=== PATIENT | female | born 1990 | race Two or more races ===

== ENCOUNTER 2019-08-16 23:29 | Emergency (ER) | payer SELFPAY ==
--- NOTE | 2019-08-16 23:34 | PDOC ---
History of Present Illness - General Chief Complaint: Pain, Acute Stated Complaint: FLANK PAIN Time Seen by Provider: 08/16/19 23:30 - History of Present Illness Initial Comments: 08/16/19 23:53 This 29-year-old woman (4 ETOP) with a history of hypertension and probable past hx kidney stones presents with 24-hour history of progressive right CVA/ flank pain. Over the last 12 hours, the pain has become more severe and nausea/ vomiting developed over the last few hours (patient vomited moderate amount of bilious material on presentation). Patient has been taking acetaminophen during the day today; she denies fever/chills, dysuria/urinary frequency/gross hematuria. She states that she had similar pattern but milder pain that self resolved approximately 1 month ago. Several years ago, patient states that she had "stone in (her) urethra" that was mildly painful. According the patient, this was treated with "an injection",medication to help the stone to pass and antibiotics without recurrence. Patient was diagnosed with hypertension approximately a month ago, being treated with lisinopril which she takes daily. No other significant PMH LMP approximately 1 week ago (just finishing); menstrual periods have been regular. No known allergies Medications as noted below No known allergies Past History - Past Medical History Allergies/Adverse Reactions: Allergies Allergy/AdvReac Type Severity Reaction Status Date / Time No Known Allergies Allergy Unverified 08/16/19 23:31 Home Medications: Ambulatory Orders Lisinopril 08/16/19 Review of Systems - Review of Systems Able to Perform ROS?: Yes Comments:: 12 point review of systems is negative except for what is noted in the history of present illness *Physical Exam - Physical Exam Comments: GENERAL: Adult female, alert and oriented x3, in moderate distress secondary to right CVA/flank pain and nausea HEAD: Normal with no signs of trauma. EYES: PERRLA, EOMI, sclera anicteric, conjunctiva clear. ENT: Ears normal, nares patent, oropharynx clear without exudates. Dry mucous membranes. NECK: Normal range of motion, supple without lymphadenopathy, JVD, or masses. LUNGS: Breath sounds equal, clear to auscultation bilaterally. No wheezes, and no crackles. HEART:Regular rate and rhythm, normal S1 and S2 without murmur, rub or gallop. ABDOMEN:.normal bowel sounds No guarding,tenderness or rebound.No masses No distention. R CVA /flank tenderness EXTREMITIES: Normal range of motion, no edema. No clubbing or cyanosis. No erythema, or tenderness. NEUROLOGICAL: Cranial nerves II through XII grossly intact. Normal speech. No focal neurological deficits. SKIN: Warm, Dry, normal turgor, no rashes or lesions noted. ED Treatment Course - LABORATORY CBC & Chemistry Diagram: 08/17/19 00:05 08/17/19 00:05 ED Progress Note - Progress Note Progress Note: This 29-year-old woman presents with a history of right CVA/right flank pain radiating to the right lower quadrant for 1 day, progressive in severity and associated with nausea and vomiting the last few hours prior to presentation. Similar pain occurred 1 month ago but was milder and resolved spontaneously. Exam is noted. Urinalysis shows microscopic hematuria assumed to be malignant although it may not be). She is best served being in an institution that has 5-10 RBCs per high -power field 0-5 WBCs per high-power field no other abnormalities seen) PGU negative IV hydration started with normal saline, 1 L and patient given 30 mg Toradol IV and 4 mg Zofran IV. Patient had persistent pain after Toradol IV and was given 0.5 mg Dilaudid IV. Renal stone protocol abdominal/pelvic CT performed. Because of persistent pain, additional 0.5 mg Dilaudid IV administered. Preliminary interpretation of CT abdomen/pelvis without contrast by Imaging service promoter salesperson: No evidence of Obstructive uropathy or renal stones. No other abnormalities seen except for large cystic mass arising from the pelvis measuring 23 cm x 25 cm x 17 cm. The bladder was unremarkable. Patient has persistent pain, especially when lying supine. The additional 2 mg Dilaudid IV given. Results discussed with the patient. She has not had any gynecological exam in a few years; she has noted some lower abdominal swelling and occasionally has mild suprapubic pain but no other symptoms. She has a history of small ovarian cyst seen when she was a teenager; no sequelae noted subsequently. Case discussed with Dr. Pedersen, [employer]CHITECT attending as well as [place] for reproductive medicine fellow on-call, Dr. Smith. Because of the patient's persistent pain and large pelvic mass, patient should be evaluated at institution that has gynecological oncology service as well as operating room availability (no available OR here until 08/19). Medical Decision Making - Medical Decision Making 08/17/19 03:31 Need for transfer to facility with specialty care discussed with the patient who agrees to the plan. [facility] transfer center contacted. Case discussed with Dr. Finley of the gynecology service. He accepted the patient to be seen in the emergency department. Noncontrast abdominal/pelvic CT study sent thru [facility] to [facility] Patient informed of acceptance at [facility] emergency department by Dr. Finley of the gynecology service. Right flank pain has recurred. Patient will be given Dilaudid 2 mg IV Discharge - Discharge Information Problems reviewed: Yes Clinical Impression/Diagnosis: Pelvic mass in female, Intractable pain Condition: Stable Disposition: TRANSFER ACUTE CARE/OTHER HOSP - Follow up/Referral Referrals: Steve Brooke [Primary Care Provider] - - Patient Discharge Instructions - Post Discharge Activity - Transfer to Acute Care Facility Receiving Facility Name: [facility] Accepting Physician:: Dr Finley
[2019-08-16 23:41] VITALS: BMI 36.6
[2019-08-16 23:44] LABS: EPITHELIAL CELLS FEW /hpf
[2019-08-16 23:46] LABS: HCG,QUALITATIVE URINE Negative
[2019-08-16] MEDS ORDERED: ONDANSETRON 4 MG/2 ML VIAL IVPUSH ONE (23:48)
[2019-08-16] MEDS ORDERED: KETOROLAC TROMETHAMINE 30 MG/1 ML VIAL IVPUSH ONE (23:48)
[2019-08-16] MEDS ORDERED: SODIUM CHLORIDE 1,000 ML IV STA (23:48)
[2019-08-16] MEDS ORDERED: ONDANSETRON 4 MG/2 ML VIAL ONE (23:51)
[2019-08-16] MEDS ORDERED: KETOROLAC TROMETHAMINE 30 MG/1 ML VIAL ONE (23:51)
[2019-08-17] MEDS ORDERED: HYDROmorphone HCL CARPU-JECT 1 MG/1 ML DISP.SYRIN IVPUSH ONE ×2 (00:26→00:50)
[2019-08-17] MEDS ORDERED: HYDROmorphone HCL CARPU-JECT 1 MG/1 ML DISP.SYRIN ONE (00:28)
[2019-08-17] MEDS ORDERED: HYDROmorphone HCL CARPU-JECT 2 MG/1 ML DISP.SYRIN IVPUSH ONE ×2 (01:29→03:44)
[2019-08-17] MEDS ORDERED: HYDROmorphone HCl 2 MG/ML VIAL ONE ×2 (01:31→03:47)
[2019-08-17 02:01] LABS: ALBUMIN 3.8 g/dl (3.4-5.0); BILIRUBIN,TOTAL 0.5 mg/dL (0.2-1); BLOOD UREA NITROGEN 10.5 mg/dL (7-18); CALCIUM 8.9 mg/dL (8.5-10.1); CREATININE 0.7 mg/dL (0.55-1.3); TOT PROT 7.4 g/dl (6.4-8.2)
[2019-08-17 02:34] LABS: HEMATOCRIT 40.3 % (32.4-45.2); HEMOGLOBIN 13.5 GM/dL (10.7-15.3); MEAN CELL VOLUME 91.4 fl (80-96); RBC 4.41 M/mm3 (3.60-5.2); WHITE BLOOD COUNT 13.4 K/mm3 (4.0-10.0)
[2019-08-17 02:35] LABS: BASO % 0.2 % (0-2.0); EOS % 1.2 % (0-4.5); LYMPH % 38.2 % (8-40); MCH 30.5 pg (25.7-33.7); MCHC 33.4 g/dl (32.0-36.0); MEAN PLT VOLUME 9.3 fl (7.5-11.1); MONO % 7.8 % (3.8-10.2); NEUT % 52.6 % (42.8-82.8); PLATELET COUNT 348 K/MM3 (134-434); RDW 12.8 % (11.6-15.6)
[2019-08-17 03:34] VITALS: BP 125/91; PULSE 61; TEMP 97.8
== END 2019-08-17 04:42 | disposition short-term general hospital (02) ==
LOC: FER 23:29
CPT/HCPCS: 36415; 74176-TC; 80053; 81003; 81015; 84703; 85025; 87086; 99283-25; J7030

== ENCOUNTER 2024-07-10 04:04 | Day surgery (SDC) | payer BC ==
[2024-06-17 17:29] VITALS: BMI 40.9
[2024-07-10] MEDS ORDERED: LIDOCAINE HCL/PF 2% SDV 5ML VIAL ONE (07:25)
[2024-07-10] MEDS ORDERED: PROPOFOL 20 ML ONE (07:25)
[2024-07-10] MEDS ORDERED: MIDAZOLAM HCL 2 MG/2 ML SINGLE DOSE VIAL ONE (07:25)
[2024-07-10] MEDS ORDERED: KETOROLAC TROMETHAMINE 30 MG/1 ML VIAL ONE (08:23)
[2024-07-10] MEDS ORDERED: DEXAMETHASONE SOD PHOSPHATE 4 MG/1 ML VIAL ONE (08:23)
[2024-07-10] MEDS ORDERED: ONDANSETRON 4 MG/2 ML VIAL ONE (08:23)
[2024-07-10] MEDS ORDERED: PROMETHAZINE HCL 25 MG/1 ML VIAL IVPB PRN (08:44)
[2024-07-10] MEDS ORDERED: ONDANSETRON 4 MG/2 ML VIAL IVPUSH PRN (08:44)
[2024-07-10] MEDS ORDERED: oxyCODONE HCL 5 MG TABLET PO PRN ×2 (08:44)
[2024-07-10] MEDS ORDERED: LACTATED RINGERS SOLUTION 1,000 ML IV SCH (08:45)
[2024-07-10] MEDS: IODINE/POTASSIUM IODIDE 5%/10% 14 ML BOTTLE NR ONE (08:45)
[2024-07-10] MEDS: FERRIC SUBSULFATE 500 ML BOTTLE TP ONE (08:46)
[2024-07-10] MEDS ORDERED: IBUPROFEN 400 MG TABLET (FP) PO PRN (08:56)
[2024-07-10] MEDS: ACETAMINOPHEN 1000 MG/100 ML BAG IVPB ONE (09:33)
[2024-07-10 11:07] VITALS: RESP 20
[2024-07-10] MEDS ORDERED: oxyCODONE HCL 5 MG TABLET ONE (11:40)
[2024-07-10] MEDS: oxyCODONE HCL 5 MG TABLET PO ONE (11:46)
[2024-07-10 12:14] VITALS: BP 114/69; PULSE 80; TEMP 97.5
[2024-07-10] MEDS ORDERED: ACETAMINOPHEN 325 MG TABLET (FP) PO PRN (15:00)
== END 2024-07-10 12:45 | disposition home or self-care (01) ==
LOC: JASU-SURG 04:04
PROVIDERS: ATTEND Specialist
PROC: 0UJH8ZZ Inspection of Vagina and Cul-de-sac, Via Natural or Artificial Opening Endoscopic (ICD-10-PCS; principal; 2024-07-10 08:00)
DX: R87.613 High grade squamous intraepithelial lesion on cytologic smear of cervix (HGSIL) (principal)
CPT/HCPCS: 81025; 88307-TC; 88341-TC; 88342-TC; 94760; J0131